=== PATIENT | female | born 1990 | race American Indian/Alaskan Native ===

== ENCOUNTER 2018-01-19 18:29 | Emergency (ER) | payer MEDICAID ==
[2018-01-19 18:30] VITALS: BMI 40.2
[2018-01-19 19:59] LABS: HCG,QUALITATIVE URINE POSITIVE (NEGATIVE)
[2018-01-19 20:00] LABS: SQUAMOUS EPITHIAL 4 /hpf (0-5); URINE BACTERIA RARE (<OCC); URINE BILIRUBIN NEGATIVE (NEGATIVE); URINE BLOOD NEGATIVE (NEGATIVE); URINE CLARITY Clear (Clear); URINE COLOR Yellow (YELLOW); URINE GLUCOSE (UA) NORMAL (Normal); URINE LEUKOCYTE ESTERASE NEG Leu/uL (Negative); URINE PROTEIN NEGATIVE (NEGATIVE)
--- NOTE | 2018-01-19 20:36 | C.PDOC ---
History Of Present Illness 27 year old female presents to the ED for evaluation. Patient is requesting conformation of test after she noticed some implantation spotting and vulvovaginal candidiasis. Patient also c/o vulvar itching, patient reports PMHx of UTI but denies past vulvovaginal candidiasis. Patient also states having minor lower back pain. Patient denies fever, chills, nausea, vomit, diarrhe, vaginla bleeding, dysuria, hematuria. Time Seen by Provider: 01/19/18 19:25 Chief Complaint (Nursing): Back Pain History Per: Patient History/Exam Limitations: no limitations Onset/Duration Of Symptoms: Days Current Symptoms Are (Timing): Still Present Quality Of Discomfort: "Pain" Recent travel outside of the [place]: No Additional History Per: Patient Past Medical History Reviewed: Historical Data, Nursing Documentation, Vital Signs Vital Signs: Last Vital Signs Temp 98.3 F 01/19/18 18:37 Pulse 80 01/19/18 18:37 Resp 20 01/19/18 18:37 BP 111/74 01/19/18 18:37 Pulse Ox 99 01/19/18 18:37 - Medical History PMH: Anxiety Surgical History: No Surg Hx Family History: States: Unknown Family Hx - Social History Hx Tobacco Use: Yes Hx Alcohol Use: Yes Hx Substance Use: Yes - Immunization History Hx Tetanus Toxoid Vaccination: No Hx Influenza Vaccination: No Hx Pneumococcal Vaccination: No Review Of Systems Constitutional: Negative for: Fever, Chills Cardiovascular: Negative for: Chest Pain Respiratory: Negative for: Shortness of Breath Gastrointestinal: Negative for: Nausea, Vomiting, Abdominal Pain Genitourinary: Positive for: Vaginal Discharge, Rash. Negative for: Dysuria, Hematuria, Vaginal Bleeding Skin: Negative for: Rash Neurological: Negative for: Weakness, Numbness Physical Exam - Physical Exam Appears: Non-toxic, No Acute Distress Skin: Normal Color, Warm, Dry Head: Atraumatic, Normacephalic Eye(s): bilateral: Normal Inspection Oral Mucosa: Moist Neck: Normal ROM, Supple Chest: Symmetrical Cardiovascular: Rhythm Regular Respiratory: Normal Breath Sounds, No Rales, No Rhonchi, No Wheezing Gastrointestinal/Abdominal: Soft, No Tenderness, No Guarding, No Rebound Back: Other (minimal tenderness SI area) Pelvic: Other (Deferred) Extremity: Normal ROM, No Tenderness, No Swelling Neurological/Psych: Oriented x3, Normal Speech, Normal Cognition Gait: Steady ED Course And Treatment - Laboratory Results Lab Interpretation: Normal (ua neg.) Urine POC: Positive O2 Sat by Pulse Oximetry: 99 (ON RA) Pulse Ox Interpretation: Normal Medical Decision Making Medical Decision Making: Plan: * Diflucan 100 mg PO * UA + test confirmed vulvovaginal candidiasis 1 pill entire treatment given in ED outpatient f/u for care. Disposition Doctor Will See Patient In The: Office Counseled Patient/Family Regarding: Studies Performed, Diagnosis - Disposition Referrals: [facility] [Outside] [facility] [Outside] [facility] [Outside] [facility] [Outside] Disposition: HOME/ ROUTINE Disposition Time: 20:37 Condition: GOOD Additional Instructions: test POSITIVE continue vitamin daily outpatient OBGYN f/u- call for an appt next US @ 12 weeks Vulvovaginal Candidiasis You received Diflucan 100 mg by mouth this is an ENTIRE treatment Symptoms should resolve in 2-3 days Instructions: Vulvovaginal Yeast Infection, Tests, Symptoms Forms: [facility] ([place]) - Clinical Impression Clinical Impression: confirmed by positive urine test, Vulvovaginal candidiasis - Scribe Statement The provider has reviewed the documentation as recorded by the Scribe Jalil Henao All medical record entries made by the Scribe were at my direction and personally dictated by me. I have reviewed the chart and agree that the record accurately reflects my personal performance of the history, physical exam, medical decision making, and the department course for this patient. I have also personally directed, reviewed, and agree with the discharge instructions and disposition.
[2018-01-19 20:49] VITALS: BP 131/90; PULSE 88; RESP 18; TEMP 98.9
[2018-01-19 21:53] VITALS: O2SAT 99
== END 2018-01-19 20:49 | disposition home or self-care (01) ==
LOC: C.ER 18:29
DX: B37.3 Candidiasis of vulva and vagina (principal); Z32.01 Encounter for pregnancy test, result positive